=== PATIENT | male | born 1985 | race Caucasian/White ===

== ENCOUNTER 2021-07-28 10:52 | Emergency (ER) | payer OTHER, SELFPAY ==
--- NOTE | ~2021-07-28 | XR_ITS ---
EXAMINATION: XR chest 2V DATE: 07/28/2021 12:16 INDICATION: Midsternal chest pain. TECHNIQUE: Frontal and lateral views of the chest were obtained. COMPARISON: None. FINDINGS: The chest demonstrates clear lungs without pneumonia, pleural effusion, or pneumothorax. Th e heart size is normal. IMPRESSION: 1. No acute cardiopulmonary disease. Reviewed, dictated and finalized at location A. [facility]
--- NOTE | 2021-07-28 10:54 | ECG_ITS ---
Measurements Intervals [place] Rate: 82 P: 33 W[place]: 114 QRS: 56 QRSD: 94 T: 64 QT: 346 QTc: 406 Interpretive Statements SINUS RHYTHM WITH SHORT [place] INTERVAL INCOMPLETE RIGHT BUNDLE BRANCH BLOCK BORDERLINE ECG Electronically Signed On 07-28-2021 11:23:29 [employer]NALY[employer] by Dg Mujica D.O.
[2021-07-28 11:02] VITALS: BP 138/87; PULSE 92; RESP 18; TEMP 36.2; O2SAT 100
[2021-07-28 11:21] LABS: Basophils Percent Auto 0.5 % (0.2-1.2); Hematocrit 45.6 % (42.0-52.0); Hemoglobin 15.9 g/dL (14.0-18.0); Immature Granulocyte Absolute 0.03 K/mm3 (0.00-0.031); Immature Granulocyte Percent A 0.5 % (0-0.5); Lymphocytes Absolute Auto 1.18 K/mm3 (0.9-3.2); Lymphocytes Percent Auto 18.1 % (18.3-44.2); Mean Corpuscular HGB Conc 34.9 g/dl (32-36); Mean Corpuscular Hemoglobin 30.4 pg (26-34); Mean Corpuscular Volume 87.2 fl (80-100); Mean Platelet Volume 10.7 fl (7.4-10.4); Monocytes Absolute Auto 0.3 K/mm3 (0.1-0.6); Monocytes Percent Auto 5.1 % (2.6-8.5); Neutrophils Absolute Auto 4.9 K/mm3 (1.3-6.7); Neutrophils Percent Auto 75.8 % (45.5-73.1); Platelet Count Result 208 k/mm3 (150-375); Red Blood Count 5.23 M/mm3 (4.6-6.20); Red Cell Distribution Width 12.5 % (11.5-14.5); White Blood Count 6.5 K/mm3 (4.5-10.0)
[2021-07-28 11:31] LABS: Alanine Aminotransferase 15 U/L (4-50); Albumin Level 5.1 g/dL (3.5-5.1); Alkaline Phosphatase 72 U/L (38-126); Anion Gap 11 mmol/L (8-16); Aspartate Amino Transferase 27 U/L (17-59); Bilirubin,Total 1.2 mg/dL (0.2-1.3); Blood Urea Nitrogen 10 mg/dL (9-20); Calcium 9.3 mg/dL (8.4-10.2); Carbon Dioxide 24 mmol/L (22-30); Chloride 101 mmol/L (98-107); Estimated CRCL calculation 101 ml/min; Estimated Glomerular Filt Rate > 60; Glucose 113 mg/dL (65-110); Lipase 50 U/L (23-300); Sodium 136 mmol/L (137-145)
[2021-07-28 11:34] LABS: INR 1.1; Prothrombin Time 13.9 Seconds (11.1-14.7)
[2021-07-28 11:35] LABS: Partial Thromboplastin Time 27.9 SECONDS (22.3-36.8)
[2021-07-28 11:42] LABS: Troponin I < 0.012 ng/mL (0.000-0.034)
--- NOTE | 2021-07-28 13:56 | ED.CHESTPAIN ---
HPI - Chest Pain General Chief Complaint: Chest Pain Stated Complaint: chest pain, sob since tuesday Time Seen by Provider: 07/28/21 12:38 Source: patient Mode of arrival: ambulatory Limitations: no limitations History of Present Illness HPI narrative: 33-year-old male Basically healthy Complains of a 4-day history of worsening episodes of severe anxiety/panic attacks He is not exactly sure what is precipitating these episodes but notes that they have been getting more frequent and worse They are accompanied by epigastric chest discomfort and some shortness of breath, and when he mentioned that when he tried to get a doctor appointment they asked him to come to the ED to be checked out He does not have any kind of exertional symptoms He does not take medication for anything currently Related Data Home Medications Medication Instructions Recorded Confirmed pantoprazole PO 07/28/21 Allergies Allergy/AdvReac Type Severity Reaction Status Date / Time No Known Allergies Allergy Unknown Verified 07/28/21 14:12 Review of Systems Review of Systems: All systems reviewed & are unremarkable except as noted in HPI and below Constitutional: Constitutional: Reports no additional constitutional complaints, Denies chills, Denies fever(s) and Denies headache(s) Eyes: Eyes: Reports no additional eye complaints and Denies change in vision ENT: Denies headache(s) and Denies sore throat Cardiovascular: Cardiovascular: Reports chest pain, Denies radiating jaw, neck or arm pain and Denies dyspnea Respiratory: Respiratory: Denies cough and Reports dyspnea Gastrointestinal: Gastrointestinal: Denies abdominal pain, Denies diarrhea, Denies nausea and Denies vomiting Genitourinary: Genitourinary: Denies dysuria and Denies urinary frequency Musculoskeletal: Musculoskeletal: Denies deformity, Denies arthralgias, Denies joint swelling and Denies numbness Integumentary/Breasts: Skin/Breast: Denies rash and Denies wounds Neurologic: Denies headache(s), Denies focal weakness and Denies numbness Psychiatric: Psychiatric: Reports no additional psychiatric complaints, Reports anxiety and Denies suicidal ideation Endocrine: Endocrine: Reports no additional endocrine complaints Hematologic/Lymphatic: Hematologic/Lymphatic: Reports no additional hematologic/lymphatic complaints Allergic/Immunologic: Allergic/Immunologic: Reports no additional allergic/immunologic complaints Exam Narrative: GENERAL: Well-appearing, well-nourished, and in no acute distress. HEAD: Normocephalic, atraumatic. EYES: PERRLA and EOMI. ENT: Nares clear, no rhinorrhea or epistaxis. Mucous membranes moist. NECK: Supple. No adenopathy or masses. No JVD CHEST: Clear to auscultation. No respiratory distress. No wheezes rales or rhonchi HEART: Regular rate and rhythm. No murmur heard. Normal peripheral pulses. No chest wall tenderness ABDOMEN: Soft, nontender, nondistended, normal active bowel sounds. EXTREMITIES: Normal range of motion. No edema. SKIN: Warm, dry, no rash. NEURO: No focal deficits. Alert and oriented x3. PSYCH: Normal mood and affect. Course Course Emergency Course: Work-up unremarkable Will put him on a low-dose of metoprolol and Atarax that he can follow-up with his primary Vital Signs Vital signs: Vital Signs Temperature 36.2 C L 07/28/21 11:02 Pulse Rate 92 07/28/21 11:02 Respiratory Rate 18 07/28/21 11:02 Blood Pressure 138/87 07/28/21 11:02 Pulse Oximetry 100 07/28/21 11:02 Temperature 36.2 C L 07/28/21 11:02 Pulse Rate 92 07/28/21 11:02 Respiratory Rate 18 07/28/21 11:02 Blood Pressure 138/87 07/28/21 11:02 Pulse Oximetry 100 07/28/21 11:02 MDM - Chest Pain Medical Records Data Attestation: I reviewed the patient's medical records. Lab Data Attestation: I reviewed the patient's lab results. Result diagrams: 07/28/21 11:12 07/28/21 11:12 Labs: Lab R
[2021-07-28 14:40] LABS: Troponin I < 0.012 ng/mL (0.000-0.034)
[2021-07-28 14:53] LABS: Free T4 Free Thyroxine 1.29 ng/mL (0.78-2.19)
[2021-07-28 14:59] LABS: Thyroid Stimulating Hormone 0.742 uIU/mL (0.465-4.680)
[2021-07-28 15:41] VITALS: BP 129/77; PULSE 79; RESP 19; O2SAT 98
== END 2021-07-28 15:44 | disposition home or self-care (01) ==
PROVIDERS: Emergency Provider Emergency Medicine; PCP Physician Assistant
DX: F41.9 Anxiety disorder, unspecified (principal); R07.89 Other chest pain; I45.10 Unspecified right bundle-branch block
CPT/HCPCS: 36415; 71046; 80053; 83690; 84439; 84443; 84484; 85025; 85610; 85730; 93005; 99284

== ENCOUNTER 2023-11-26 11:20 | Emergency (ER) | payer OTHER, SELFPAY ==
[2023-11-26 11:55] VITALS: BP 108/73; PULSE 100; RESP 16; TEMP 37.2; O2SAT 99
--- NOTE | 2023-11-26 12:19 | ED.GENADULT ---
HPI - General Adult General Chief complaint: Upper Respiratory Infection Stated complaint: COUGH/LUNG PAIN/CLAMMY/DIZZY/COLD Time Seen by Provider: 11/26/23 12:19 Source: patient Mode of arrival: ambulatory Limitations: no limitations History of Present Illness HPI narrative: 38-year-old male patient comes in to clinic with symptoms that started of body aches, chills, sweats, runny nose, congestion, and productive cough. patient states he has been taking a Tylenol and ibuprofen over the last 24 hours and tried to take his temperature with a temporal thermometer but states it is not very reliable so he does not know if he had a fever. He states his 2 sons have been sick at home in the oldest just got diagnosed with a ear infection. Patient states he has been having ear popping but no pain. Patient had 1 episode this morning of nausea and an urge to having BM but the BM was not diarrhea. patient denies vomiting and abdominal pain. Related Data Home Medications Medication Instructions Recorded Confirmed pantoprazole 40 mg tablet,delayed PO 07/28/21 release Allergies Allergy/AdvReac Type Severity Reaction Status Date / Time No Known Allergies Allergy Unknown Verified 07/28/21 14:12 Review of Systems Review of Systems: CONSTITUTIONAL: Denies fever, positive body aches, chills and sweats. EYES: Denies visual changes, redness, or discharge. ENT: positive rhinorrhea and congestion. denies sore throat or otalgia. positive ear popping . CARDIOVASCULAR: Denies chest pain, palpitations, or edema. RESPIRATORY: positive productive phlegmy cough and denies dyspnea. GASTROINTESTINAL: Denies abdominal pain, 1 episode of nausea, and denies vomiting or diarrhea. GENITOURINARY: Denies dysuria or hematuria. SKIN: Denies rash or itching. MUSCULOSKELETAL: Denies back pain, joint pain, or myalgia. NEUROLOGIC: Denies headache, numbness, or weakness. PSYCHIATRIC: Denies anxiety or depression. [facility] Past Medical History Medical History (Updated 11/26/23 @ 12:55 by SIMONE Lazar) Bronchitis GERD (gastroesophageal reflux disease) Hypercholesteremia Social History Social History (Updated 11/26/23 @ 12:25 by SIMONE Lazar) Smoking status: Former smoker Comments At the time of my signature I agree with nursing past medical history, surgical, social, and family history. There is no relevant family history pertinent to the presenting complaint. Exam Narrative: GENERAL: Well-appearing, well-nourished, and in no acute distress. HEAD: Normocephalic, atraumatic. EYES: PERRLA and EOMI. bilateral conjunctiva watery drainage. ENT: Nares clear, no rhinorrhea or epistaxis. Mucous membranes moist. posterior oropharynx without erythema or edema, tonsils 1+ without exudate. Bilateral TMs pearly burton with clear effusion and air bubbles, canals are clear and free of debris or drainage without erythema or edema. NECK: Supple. No lymphadenopathy CHEST: Clear to auscultation. No respiratory distress. HEART: Regular rate and rhythm. No murmur heard. Normal peripheral pulses. ABDOMEN: Soft, nontender, nondistended, normal active bowel sounds. EXTREMITIES: Normal range of motion. No edema. SKIN: Warm, dry, no rash. NEURO: No focal deficits. Alert and oriented x3. Course Course Level of Care: Express Care Visit Reevaluation(s) Reevaluation #1: Re-evaluated patient notified him that his swab for influenza and COVID are both negative. Discussed with patient he does have some type of virus which should go away anywhere from 5-10 days. Discussed with patient he can continue [id number] treatment for symptomatic relief. Patient verbalized understanding denies any other questions or concerns at this time. Date: 11/26/23 Time: 12:57 Vital Signs Vital signs: Vital Signs Temperature 37.2 C 11/26/23 11:55 Pulse Rate 100 11/26/23 11:55 Respiratory Rate 16 11/26/23 11:55 Blood Pressure 108
== END 2023-11-26 13:01 | disposition home or self-care (01) ==
PROVIDERS: Emergency Provider Nurse Practitioner Family
DX: J06.9 Acute upper respiratory infection, unspecified (principal); K21.9 Gastro-esophageal reflux disease without esophagitis; E78.00 Pure hypercholesterolemia, unspecified; Z87.891 Personal history of nicotine dependence
CPT/HCPCS: 87426; 87804; 99212; G0463